=== PATIENT | female | born 1940 | race Native Hawaiian/Other Pacific Islander ===

== ENCOUNTER 2022-07-25 23:54 | Observation (INO) | payer OTHER ==
[~2022-07-25] VITALS: Ht 160 cm; Wt 96.6 kg
[2022-07-25 23:55] VITALS: BP 127/60; TEMP 97.8
[2022-07-26] VITALS (9 sets, daily range): BP systolic 112–153; BP diastolic 53–65; TEMP 96.7–97.6; Ht 160 cm; Wt 96.6 kg
[2022-07-26 00:19] LABS: PLATELET COUNT 388 K/uL (152-353)
[2022-07-26 00:24] LABS: POTASSIUM 3.5 mmol/L (3.6-5.2)
[2022-07-26] MEDS ORDERED: CYCL10TA35 PO (00:28)
[2022-07-26] MEDS ORDERED: OMEPRAZOLE40 MG PO (00:29)
[2022-07-26] MEDS ORDERED: AMLODIPINE BESYLATE PO (00:29)
[2022-07-26] MEDS ORDERED: ONDA4TAB3 PO ×2 (00:30→10:28)
[2022-07-26] MEDS ORDERED: GABA300C2 PO (00:30)
[2022-07-26] MEDS ORDERED: ALLERGY RELIEF 25 MG PO (00:30)
[2022-07-26] MEDS ORDERED: LEVOTHYROXINE50 MCG PO (00:31)
[2022-07-26] MEDS ORDERED: LIPITOR20 MG PO (00:31)
[2022-07-26] MEDS ORDERED: CLOP75TA2 PO (00:32)
[2022-07-26] MEDS ORDERED: NITR0.4S2 SL (00:33)
[2022-07-26] MEDS ORDERED: NAPROXEN SOD550 MG (00:34)
[2022-07-26] MEDS ORDERED: ALBU90AE13 INH (10:28)
== END 2022-07-26 11:13 | disposition home or self-care (01) ==
LOC: ED 23:54 → MED/SURG 07-26 01:09
PROVIDERS: Internal Medicine; ADMIT Internal Medicine; ATTEND Internal Medicine
DX: R55 Syncope and collapse (principal); R07.89 Other chest pain; I25.10 Atherosclerotic heart disease of native coronary artery without angina pectoris; E03.8 Other specified hypothyroidism; I10 Essential (primary) hypertension
CPT/HCPCS: 36415; 80053; 82550; 84439; 84443; 84484; 85027; 93005; 96374; 96376; 99221; 99284; G0378; J2405